=== PATIENT | male | born 1995 | race Caucasian/White ===

== ENCOUNTER 2016-05-11 16:39 | Emergency (ER) | payer OTHER ==
[~2016-05-11] VITALS: Ht 190.5 cm; Wt 113.6 kg
[2016-05-11 16:43] VITALS: BP 169/100; PULSE 85; RESP 18; O2SAT 98
[2016-05-11 17:39] LABS: BASOPHILS % (AUTO) 0.3 % (0-3); EOSINOPHILS % (AUTO) 2.1 % (0-5); MONOCYTES % (AUTO) 5.9 % (4-12); Mean Corpuscular Volume 89.3 fL (81-100); NEUTROPHILS % (AUTO) 53.4 % (40-74); Platelet Count 213 bil/L (150-400)
[2016-05-11 17:56] LABS: TROPONIN T < 0.010 ug/L (0.0-0.011)
--- NOTE | 2016-05-11 18:05 | ED.REPORT ---
HPI-Chest Pain Under 40 Date of Service May 11, 2016 ED Provider: Dr. Ag Seaman D.O. A 20 year old male with a history of anxiety and depression presents to the ED with left-sided chest tightness onset just prior to arrival. Associated symptoms include left arm numbness and weakness. The patient is concerned about a heart attack but also attributes his symptoms in part to anxiety. He is experiencing life stress and his grandmother had a heart attack two days ago. The patient has plans to see a psychologist in the near future. Nursing Notes Stated Complaint: TIGHTNESS IN CHEST/NUMBNESS IN ARM Chief Complaint: Chest Pain Nursing Notes Reviewed: Yes Allergies: Coded Allergies: No Known Allergies (Unverified , 05/11/16) General Time Seen by MD: 18:04 Chief Complaint Chest pain Hx Obtained From: Patient Arrived By: Walk-in Sudden in Onset?: Yes Onset Occurred: Just prior to arrival Symptom Duration: Since onset Location: : Chest left Quality: Painful Severity: Current: Moderate Severity: Maximum: Moderate Associated with: Reports: Numbness/tingling (Left Arm), Denies: Fever Pertinent Negative: Relieved by nothing Context Related History: Reports: Anxiety disorder Recent Healthcare: No recent doctor visit Similar Sx Previous: No Past Medical History Past Medical History Anxiety Depression Past Surgical History None reported Family History Hypertension Smoking History Unknown if Ever Smoker Social History Just graduated college - 05/11/2016 Other Social History: Good social support Ambulatory Status Independent Review of Systems Constitutional: Denies: Fever Respiratory: Denies: Non-productive cough Cardiovascular: Reports: Chest pain ("tightness") GI: Denies: Vomiting Neurologic: Reports: Numbness (Left arm), Weakness (Left arm) Psychiatric: Reports: Anxiety, Stress Complete sys rev & neg: except as marked. Physical Exam Initial Vital Signs Vital Signs (First) Date Time Temp Pulse Resp B/P Pulse Ox O2 Delivery O2 Flow Rate FiO2 05/11/16 16:43 36.0 85 18 169/100 98 Room Air Initial VS: Reviewed Head / Eyes: Atraumatic, Normocephalic ENT: Conjunctiva normal, No scleral icterus Neck: Supple, Full range of motion Extremities: Vascular intact, Neuro intact, No swelling Skin: Warm, Dry, No cyanosis Neurologic: Alert, Oriented, Nonfocal General/Constitutional: Awake, Alert Behavior: Positive: Anxious Respiratory / Chest: Breath sounds NL, Breath sounds = bilat, No respiratory distress Patient is breathing deeply Cardiovascular: Heart rate NL, Regular rhythm, Heart sounds NL Heart rate increases while discussing anxiety Interpretation & Diagnostics Lab Results Interpretation Result Diagram: 05/11/16 1719 05/11/16 1719 Test 05/11/16 17:19 05/11/16 18:23 White Blood Count 6.1th/mm3 (3.8-10.1) Red Blood Count 5.06mil/mm3 (4.40-5.80) Hemoglobin 15.7g/dL (13.8-17.2) Hematocrit 45.2% (41.0-50.0) Mean Corpuscular Volume 89.3fL (81-100) Mean Corpuscular Hemoglobin 31.0pg (27.0-35.0) Mean Corpuscular Hemoglobin Concent 34.7% (32.0-37.0) Red Cell Distribution Width 13.2% (12.3-15.4) Platelet Count 213bil/L (150-400) Neutrophils (%) (Auto) 53.4% (40-74) Lymphocytes (%) (Auto) 38.0% (14-46) Monocytes (%) (Auto) 5.9% (4-12) Eosinophils (%) (Auto) 2.1% (0-5) Basophils (%) (Auto) 0.3% (0-3) Sodium Level 139mEq/L (134-144) Potassium Level 3.8mEq/L (3.5-5.2) Chloride Level 100mEq/L (97-108) Carbon Dioxide Level 23mmol/L (18-29) Blood Urea Nitrogen 12mg/dL (6-20) Creatinine 0.85mg/dL (0.76-1.27) Estimat Glomerular Filtration Rate 120mL/min (>59) Glucose Level 186mg/dL (60-99) Calcium Level 9.4mg/dL (8.5-10.1) Magnesium Level 2.0mg/dL (1.6-2.6) Total Bilirubin 0.5mg/dL (0.0-1.2) Aspartate Amino Transf (AST/SGOT) 27U/L (0-50) Alanine Aminotransferase (ALT/SGPT) 42U/L (0-44) Alkaline Phosphatase 81U/L (25-150) Total Protein 7.7g/dL (6.4-8.4) Albumin 4.2g/dL (3.4-5.0) Hold Mendoza Top Tube Received (Received) Troponin T < 0.010ug/L (0.0-0.011) Pulse Oximetry Interpretation Pulse Oximetry: Pulse Ox normal (99%), On room air ECG Interpretation ECG Interpretation: Normal sinus rhythm rate [address] segments Time: 16:59 Interpreted by: ED physician Rhythm Strip Interpretation : Time: 18:28 Rhythm Strip Interpretation: Interpreted by me, Rate (80), Normal sinus rhythm X-Ray Chest Interpretation Chest Xray Interpretation: IMPRESSION: A source of chest pain is not seen. Dictated by: Gustabo Pires M.D. on 05/11/2016 at 18:13 View: Portable, 1 view Interpretation / Wet Read by: Interpret - Radiologist Re-Eval/Medical Decision Med Decision/Clinical Course This gentleman is clearly suffering from anxiety. His grandmother is in the hospital and he is struggling with that mentally. Just in talking to him his heart rate goes up by about 25 beats a minute. Serial troponins were negative. D-dimer was negative. Acute pulmonary embolism and aortic dissection all seem very unlikely. His blood pressure symmetric in both arms and he never had any ripping or tearing pain. This with a normal d-dimer makes any of those diagnosis is highly unlikely. NE could be safely ruled out with his low risk profile and serial troponins. Ativan seemed to help a bit. I will prescribe a short course of Xanax and recommend close outpatient follow-up. Re-Evaluation/Progress : Time of Eval: 19:38 Patient Status: Condition improved Re-Evaluation/Progress Note: Discussed with patient x-ray and lab results, diagnosis, and plan for discharge. Follow-up and return to the ER instructions given. Patient agrees with plan for care and all questions were addressed. Counseled Regarding: Diagnosis, Lab results, Need for follow-up, When/why to return to ED Discharge & Departure Shift Change Sign-Out Response to Therapy: Improved Primary Impression: Chest pain Chest pain type: unspecified Qualified Code: R07.9 - Chest pain, unspecified Additional Impression: Anxiety Disposition: Home Discharge Condition All VS Reviewed: Yes Condition: Improved Patient Instructions: Chest Pain (ED), Generalized Anxiety Disorder (ED) Additional Instructions: The EKG, serial troponins were normal. Your chest x-ray was normal. Your symptoms seem consistent with anxiety and that is understandable. Take one Xanax every 8 hours as needed for anxiety symptoms. Do not drive or drink alcohol while taking this as it is sedating. Do not participate in any activities that put you or others at risk while under the influence of the Xanax. Set up a follow up with your psychologist or primary care as we discussed. Do not hesitate to return if you have any problems or any worsening symptoms. I hope your grandmother gets better soon. Take care. It was very nice meeting you. Your blood sugar was 186. This needs to be followed up with when you are seen in follow up. Discuss this with your primary care physician as well. Referrals: [facility] [place] Attestation Portions of this note were transcribed by Sadie Shields. I, Dr. Seaman, personally performed the history, physical exam, and medical decision-making; I reviewed and confirmed the accuracy of the information in the transcribed note. Signed by: Amado Cameron, 05/11/2016, 19:40 copies to: [facility] Ag Seaman DO May 11, 2016 18:04 SADIE SHIELDS May 11, 2016 18:40
--- NOTE | 2016-05-11 18:14 | DRSVH ---
PROCEDURE: X-RAY CHEST ONE VIEW, PORTABLE ([id number]) INDICATIONS: CHEST PAIN TECHNIQUE: One view of the chest was acquired. COMPARISON: None. FINDINGS: Surgical changes and devices: None. Lungs and pleura: No pleural effusions or pneumothorax. Lungs are clear. Mediastinum: Mediastinal contours appear normal. Heart size is normal. Bones and chest wall: No suspicious bony lesions. Overlying soft tissues appear unremarkable. IMPRESSION: A source of chest pain is not seen. Dictated by: Gustabo Pires M.D. on 05/11/2016 at 18:13 Approved by: Gustabo Pires M.D. on 05/11/2016 at 18:13
[2016-05-11] MEDS ORDERED: LORazepam 0.5 mg Tablet PO ONE (18:40)
[2016-05-11 18:51] VITALS: BP 140/51; PULSE 82; RESP 20; O2SAT 99
[2016-05-11 19:50] VITALS: BP 147/74; PULSE 88; RESP 16; O2SAT 95
== END 2016-05-11 19:45 | disposition home or self-care (01) ==
LOC: SED 16:39
DX: R07.89 Other chest pain (principal); F41.9 Anxiety disorder, unspecified; R20.0 Anesthesia of skin; M62.81 Muscle weakness (generalized)